=== PATIENT | male | born 1960 | race Caucasian/White ===

== ENCOUNTER 2021-05-25 11:13 | Outpatient (CLI) | payer BC ==
[~2021-05-25] VITALS: Ht 177.8 cm; Wt 81.8 kg
[2021-05-25 11:20] VITALS: BP 151/67
[2021-05-25] MEDS ORDERED: NS IV ONE (12:00)
[2021-05-25] MEDS ORDERED: TEPROTUMUMAB TRBW IV ONE (12:00)
[2021-05-25 12:30] VITALS: BP 139/67
[2021-05-25] MEDS ORDERED: LEVO50TA5 PO (13:25)
[2021-05-25] MEDS ORDERED: LOVA10TA PO (13:26)
[2021-05-25] MEDS ORDERED: LISI10TA22 PO (13:27)
[2021-05-25 13:45] VITALS: BP 134/69
== END 2021-05-25 13:45 | disposition home or self-care (01) ==
LOC: M INFU 11:13
PROVIDERS: ATTEND Ophthalmology
DX: E05.00 Thyrotoxicosis with diffuse goiter without thyrotoxic crisis or storm (principal)
CPT/HCPCS: 96365; J3241

== ENCOUNTER 2021-06-15 11:59 | Outpatient (CLI) | payer BC ==
[~2021-06-15] VITALS: Ht 177.8 cm; Wt 81.0 kg
[~2021-06-15 11:59] MED LIST: LEVO50TA5 PO; LISI10TA22 PO; LOVA10TA PO
[2021-06-15 12:10] VITALS: BP 146/68
[2021-06-15] MEDS ORDERED: NS IV ONE (12:30)
[2021-06-15] MEDS ORDERED: TEPROTUMUMAB TRBW IV ONE (12:30)
[2021-06-15 14:01] VITALS: BP 121/69
[2021-06-15 15:05] VITALS: BP 133/72
== END 2021-06-15 15:05 | disposition home or self-care (01) ==
LOC: M INFU 11:59
PROVIDERS: ATTEND Ophthalmology
DX: E05.00 Thyrotoxicosis with diffuse goiter without thyrotoxic crisis or storm (principal)
CPT/HCPCS: 96365; J3241

== ENCOUNTER 2021-07-06 11:09 | Outpatient (CLI) | payer BC ==
[~2021-07-06] VITALS: Ht 177.8 cm; Wt 81.0 kg
[2021-07-06 11:15] VITALS: BP 156/76
[2021-07-06] MEDS ORDERED: TEPROTUMUMAB TRBW IV ONE (12:00)
[2021-07-06] MEDS ORDERED: NS IV ONE (12:00)
[2021-07-06 12:30] VITALS: BP 137/60
[2021-07-06 13:40] VITALS: BP 146/72
[2021-07-06 13:45] VITALS: BP 137/60
== END 2021-07-06 13:45 | disposition home or self-care (01) ==
LOC: M INFU 11:09
PROVIDERS: ATTEND Ophthalmology
DX: E05.00 Thyrotoxicosis with diffuse goiter without thyrotoxic crisis or storm (principal)
CPT/HCPCS: 96365; J3241

== ENCOUNTER 2021-07-26 11:43 | Outpatient (CLI) | payer BC ==
[~2021-07-26] VITALS: Ht 177.8 cm; Wt 84.1 kg
[2021-07-26 11:45] VITALS: BP 166/72
[2021-07-26] MEDS ORDERED: TEPROTUMUMAB TRBW IV ONE (12:30)
[2021-07-26] MEDS ORDERED: NS IV ONE (12:30)
[2021-07-26 13:52] VITALS: BP 150/70
[2021-07-26 13:54] VITALS: BP 150/70
== END 2021-07-26 13:55 | disposition home or self-care (01) ==
LOC: M INFU 11:43
PROVIDERS: ATTEND Ophthalmology
DX: E05.00 Thyrotoxicosis with diffuse goiter without thyrotoxic crisis or storm (principal)
CPT/HCPCS: 96365; J3241

== ENCOUNTER 2021-09-06 11:26 | Outpatient (CLI) | payer BC ==
[~2021-09-06] VITALS: Ht 170.2 cm; Wt 89.8 kg
[2021-09-06] MEDS ORDERED: TEPROTUMUMAB TRBW IV ONE (12:00)
[2021-09-06] MEDS ORDERED: NS IV ONE (12:00)
[2021-09-06 12:35] VITALS: BP 154/71
[2021-09-06 14:00] VITALS: BP 131/64
== END 2021-09-06 13:55 | disposition home or self-care (01) ==
LOC: M INFU 11:26
PROVIDERS: ATTEND Ophthalmology
DX: E05.00 Thyrotoxicosis with diffuse goiter without thyrotoxic crisis or storm (principal)
CPT/HCPCS: 96365; J3241

== ENCOUNTER 2021-09-27 12:02 | Outpatient (CLI) | payer BC ==
[~2021-09-27] VITALS: Ht 170.2 cm; Wt 89.8 kg
[2021-09-27 12:22] VITALS: BP 159/74
[2021-09-27] MEDS ORDERED: TEPROTUMUMAB TRBW IV ONE (12:30)
[2021-09-27] MEDS ORDERED: NS IV ONE (12:30)
[2021-09-27 13:59] VITALS: BP 148/68
== END 2021-09-27 14:00 | disposition home or self-care (01) ==
LOC: M INFU 12:02
PROVIDERS: ATTEND Ophthalmology
DX: E05.00 Thyrotoxicosis with diffuse goiter without thyrotoxic crisis or storm (principal)
CPT/HCPCS: 96365; J3241

== ENCOUNTER 2021-10-18 12:09 | Outpatient (CLI) | payer BC ==
[~2021-10-18] VITALS: Ht 170.2 cm; Wt 90.0 kg
[2021-10-18 12:23] VITALS: BP 133/65
[2021-10-18] MEDS ORDERED: TEPROTUMUMAB TRBW IV ONE (12:30)
[2021-10-18] MEDS ORDERED: NS IV ONE (12:30)
[2021-10-18 14:03] VITALS: BP 122/60
== END 2021-10-18 14:10 | disposition home or self-care (01) ==
LOC: M INFU 12:09
PROVIDERS: ATTEND Ophthalmology
DX: E05.00 Thyrotoxicosis with diffuse goiter without thyrotoxic crisis or storm (principal)
CPT/HCPCS: 96365; J3241